=== PATIENT | female | born 1965 | race Caucasian/White ===

== ENCOUNTER → 2019-07-09 19:26 | Outpatient (CLI) | payer OTHER, SELFPAY ==
--- NOTE | 2019-07-09 19:35 | DI.MRI.S_ITS ---
PROCEDURE: MR CERVICAL SPINE WO CON INDICATIONS: RADICULOPATHY CERVICAL REGION TECHNIQUE: Noncontrast sagittal T1 spin echo and T2 fast spin echo, sagittal STIR, foraminal oblique sagittal T2 fast spin echo, and axial gradient echo or T2 fast spin echo through the cervical spine. COMPARISON: [facility], CR, XR CERVICAL SPINE WITH FLEXION EXTENSION, 06/23/2019, 15:48. FINDINGS: Image quality: Excellent. Alignment and Curvature: Trace degenerative anterolisthesis of C4 on C5. Otherwise normal alignment. Bone Marrow: Marrow demonstrates normal overall signal. Spinal Cord: Visualized spinal cord has normal size and signal. No cerebellar tonsillar herniation. Paraspinous Soft Tissues: No paravertebral masses. Prevertebral soft tissues are normal in thickness. C2-C3: No canal stenosis or foraminal stenosis. Right facet hypertrophy. C3-C4: No canal stenosis or foraminal stenosis. Mild bilateral facet hypertrophy. C4-C5: Mild disc bulge. No canal stenosis or foraminal stenosis. Prominent right facet hypertrophy. C5-C6: Moderate chronic disc height loss. Mild disc bulge. No canal stenosis. Bilateral uncovertebral joint hypertrophy. Right facet hypertrophy. No significant foraminal stenosis. C6-C7: Severe chronic disc height loss. Mild posterior disc plus osteophyte. No canal stenosis. Bilateral uncovertebral joint hypertrophy. Moderate bilateral foraminal stenosis with flattening of the bilateral C7 nerve root sleeves. C7-T1: No canal stenosis or foraminal stenosis. IMPRESSION: 1. Spondylitic change. 2. No canal stenosis. 3. Moderate bilateral foraminal stenosis at C6-C7. 4. Multilevel facet arthropathy most significant at C4-C5. Dictated by: Leonidas Rivera M.D. on 07/12/2019 at 12:47 Approved by: Leonidas Rivera M.D. on 07/12/2019 at 12:57
== END ==
PROVIDERS: Visit Provider Physician Assistant Medical
DX: M47.22 Other spondylosis with radiculopathy, cervical region (principal); M48.02 Spinal stenosis, cervical region
CPT/HCPCS: 72141

== ENCOUNTER → 2022-06-09 14:35 | Outpatient (CLI) | payer OTHER, SELFPAY ==
--- NOTE | 2022-06-09 14:37 | DI.MRI.S_ITS ---
PROCEDURE: MR CERVICAL SPINE WO CON INDICATIONS: RADICULOPATHY/CERVALGIA TECHNIQUE: Noncontrast sagittal T1 spin echo and T2 fast spin echo, sagittal STIR, foraminal oblique sagittal T2 fast spin echo, and axial gradient echo or T2 fast spin echo through the cervical spine. COMPARISON: None. FINDINGS: Image quality: Excellent. Alignment and Curvature: Anterolisthesis of C4 on C5 measuring 2-3 millimeters. Otherwise normal alignment. Vertebral body heights maintained. Bone Marrow: No suspicious focal marrow signal abnormality. There is periarticular bone marrow edema surrounding the left C3-C4 facets with associated periarticular soft tissue edema as well as subchondral cystic change in the left C4 facet process. Spinal Cord: Visualized spinal cord has normal size and signal. No cerebellar tonsillar herniation. Regional Soft Tissues: No suspicious soft tissue abnormality. C2-C3: No spinal canal or neural foraminal stenosis. C3-C4: No spinal canal stenosis. Mild to moderate facet and uncovertebral osteoarthropathy contributing to mild bilateral neural foraminal narrowing. C4-C5: No spinal canal or neural foraminal stenosis. Mild to moderate facet and uncovertebral osteoarthropathy. C5-C6: No spinal canal or neural foraminal stenosis. Mild to moderate facet and uncovertebral osteoarthropathy. C6-C7: No spinal canal or neural foraminal stenosis. [id number] facet and uncovertebral osteoarthropathy. C7-T1: No spinal canal or neural foraminal stenosis. IMPRESSION: Multilevel [id number] facet and uncovertebral osteoarthropathy, associated with bone marrow edema on the left at C3-C4. Mild bilateral neural foraminal narrowing at C3-C4. Degenerative anterolisthesis of C4 on C5 measuring 2-3 millimeters. Dictated by: Quique Adams M.D. on 06/10/2022 at 9:14 Approved by: Quique Adams M.D. on 06/10/2022 at 9:19
== END ==
PROVIDERS: PCP Physician Assistant; Referring Provider Physician Assistant; Visit Provider Physician Assistant
DX: M47.22 Other spondylosis with radiculopathy, cervical region (principal); M43.12 Spondylolisthesis, cervical region; M48.02 Spinal stenosis, cervical region; M54.2 Cervicalgia
CPT/HCPCS: 72141